=== PATIENT | male | born 1945 | race Caucasian/White ===

== ENCOUNTER → 2016-10-16 | Outpatient (CLI) | payer MEDICARE, OTHER ==
[~2016-10-16] MED LIST: ALPR1TAB2 PO; ASPI-515 PO; ASPIRIN PO; ATOR80TA75 PO; CETI10TA24 PO; CLOBETASOL PROP TP; CORTISONE TP; DULOXETINE PO; FINA5TAB4 PO; METAMUCIL PO; METF500T4 PO; NAPR220C2 PO; NAPR220T77 PO; OMEP-110 PO; OXYC-302 PO; RANI300C PO; SALI10002 PO; SILO8CAP PO; TADA5TAB2 PO; TAMS0.4C2 PO; TRIA40VI TP; TRIAMCINOLONE OINT TP; VITAMIN B12 PO; VITAMIN D 3 PO; [UNRECOGNIZED DRUG - OTHER] PO; [UNRECOGNIZED DRUG - OTHER] TP
== END | disposition home or self-care (01) ==
LOC: CARD 12:57
PROVIDERS: ATTEND Psychiatry & Neurology Neurology
DX: H57.09 Other anomalies of pupillary function (principal); H53.452 Other localized visual field defect, left eye
CPT/HCPCS: 95930

== ENCOUNTER → 2020-04-01 | Outpatient (CLI) | payer MEDICARE ==
[~2020-04-01] MED LIST changes: +ATOR-2 PO; -ATOR80TA75 PO; -CETI10TA24 PO; +CETI10TA76 PO; +DULO30CA2 PO; +METF500T17 PO; -METF500T4 PO; +ONDA4TAB13 SL; -SILO8CAP PO; +SILO8CAP2 PO; +STOOL SOFTENER PO
[2020-04-01 09:30] LABS: BASOPHILS % (AUTO) 1 % (0-1); EOSINOPHILS % (AUTO) 1 % (1-7); LYMPHOCYTES % (AUTO) 18 % (22-44); MEAN CORPUSCULAR HEMOGLOBIN 30.1 pg (27.5-34.5); MEAN CORPUSCULAR HGB CONC 33.5 g/dL (33.2-36.2); MEAN PLATELET VOLUME 7.4 fL (7.4-10.4); MONOCYTES % (AUTO) 8 % (2-9); NEUTROPHILS % (AUTO) 72 % (42-75); PLATELET COUNT 253 x10^3/uL (130-400); RED BLOOD COUNT 5.59 x10^6/uL (4.38-5.82); RED CELL DISTRIBUTION WIDTH 13.4 % (9.4-14.8)
[2020-04-01 09:31] LABS: ALANINE AMINOTRANSFERASE 25 U/L (12-78); ALBUMIN 3.8 g/dL (3.4-5.0); ANION GAP 8 mmol/L (5-15); CALCIUM 9.1 mg/dL (8.5-10.1); CHLORIDE 109 mmol/L (98-107); CREATININE 1.05 mg/dL (0.7-1.3); INTERNATIONAL NORMALIZED RATIO 0.96 (0.93-1.1); PROTHROMBIN TIME 10.2 Seconds (9.6-11.5)
[2020-04-01 09:33] LABS: ALKALINE PHOSPHATASE 104 U/L (45-117); BILIRUBIN,TOTAL 0.8 mg/dL (0.2-1.0)
[2020-04-01 09:35] LABS: MD NO
[2020-04-01 10:48] LABS: MICROSCOPIC NOT IND
== END | disposition home or self-care (01) ==
LOC: STAR 08:04
PROVIDERS: ATTEND Neurological Surgery
DX: Z01.818 Encounter for other preprocedural examination (principal); M51.36 Other intervertebral disc degeneration, lumbar region; M48.061 Spinal stenosis, lumbar region without neurogenic claudication
CPT/HCPCS: 36415; 71046; 72110; 80053; 81003; 85025; 85610; 85730; 93005

== ENCOUNTER → 2020-04-05 | Outpatient (CLI) | payer MEDICARE | END | disposition home or self-care (01) | LOC: STAR 08:36 | PROVIDERS: ATTEND Anesthesiology | DX: Z01.812 Encounter for preprocedural laboratory examination (principal); Z20.828 Contact with and (suspected) exposure to other viral communicable diseases | CPT/HCPCS: 36415; 87635 ==

== ENCOUNTER 2020-04-18 11:58 | Outpatient (CLI) | payer MEDICARE ==
[2020-04-18] MEDS ORDERED: FENTANYL PF 100 MCG/2ML ONE ×2 (17:18→17:42)
[2020-04-18] MEDS ORDERED: HYDROmorphone 1 MG/ML, 1ML INJ ONE ×2 (17:25→17:37)
[2020-04-18] MEDS ORDERED: OXYcodone 5 MG/5 ML ORAL.SOL UDC ONE ×2 (17:37→17:56)
[2020-04-18] MEDS ORDERED: DULO60CA7 PO (21:26)
[2020-04-18] MEDS ORDERED: POLY17PO5 PO (21:26)
[2020-04-22] MEDS ORDERED: TIZA4TAB2 PO (08:05)
[2020-04-22] MEDS ORDERED: OXYC1TAB18 PO (08:05)
== END 2020-04-18 23:59 | disposition home or self-care (01) ==
LOC: RAD 11:58
PROVIDERS: ATTEND Neurological Surgery
DX: M48.061 Spinal stenosis, lumbar region without neurogenic claudication (principal); M51.36 Other intervertebral disc degeneration, lumbar region; M25.78 Osteophyte, vertebrae; M43.27 Fusion of spine, lumbosacral region
CPT/HCPCS: 72100; 72131; 76000